=== PATIENT | female | born 1945 | race Caucasian/White ===

== ENCOUNTER → 2018-05-24 09:52 | Outpatient (CLI) | payer MEDICARE, OTHER | END | disposition home or self-care (01) | LOC: D.MRI 09:52 | DX: G62.9 Polyneuropathy, unspecified (principal) ==

== ENCOUNTER → 2018-09-13 13:19 | Outpatient (CLI) | payer MEDICARE, OTHER | END | disposition home or self-care (01) | LOC: D.HCCARDIO 13:19 | DX: I07.1 Rheumatic tricuspid insufficiency (principal) ==

== ENCOUNTER → 2019-11-26 11:23 | Outpatient (CLI) | payer MEDICARE, OTHER | END | disposition home or self-care (01) | LOC: D.HCCECHO 09-17 11:00 | PROVIDERS: ATTEND Internal Medicine Cardiovascular Disease | DX: I10 Essential (primary) hypertension (principal) ==